=== PATIENT | female | born 1960 | race Caucasian/White ===

== ENCOUNTER 2019-03-10 11:44 | Inpatient (IN) ==
[2019-03-10] MEDS ORDERED: Morphine Sulfate 2 MG/ML SYRINGE IVP ONE ×2 (12:14→14:26)
[2019-03-10] MEDS ORDERED: Ondansetron 4 MG/2 ML VIAL IVP ONE (12:14)
[2019-03-10] MEDS: 0.9 % Sodium Chloride 1,000 ML IVC SCH (12:39)
[2019-03-10] MEDS ORDERED: Isovue-370 500 ML BOTTLE IVP ONE (12:59)
[2019-03-10 13:03] LABS: Basophils # 0.1 K/mcL (0.0-0.2); Basophils % 0.4 %; Eosinophils # 0.2 K/mcL (0.0-0.6); Eosinophils % 1.3 %; Hematocrit 42.7 % (35.3-44.9); Hemoglobin 13.7 g/dL (11.5-15.4); Immature Granulocytes % 0.5 % (0-4); Lymphocytes # 2.5 K/mcL (0.6-4.6); Lymphocytes % 15.5 %; Mean Corpuscular HGB Conc 32.1 g/dL (31.6-35.5); Mean Corpuscular Hemoglobin 29.7 pg (28.0-33.3); Mean Corpuscular Volume 92.6 fL (83.0-100.0); Mean Platelet Volume 10.1 fL (9.4-12.4); Monocytes # 0.8 K/mcL (0.0-1.3); Monocytes % 4.9 %; Neutrophils # 12.6 K/mcL (1.6-8.9); Platelet Count 247 K/mcL (140-400); Red Blood Count 4.61 M/mcL (3.82-4.97); Red Cell Distribution Width 15.5 % (11.5-14.5); Segmented Neutrophils % 77.4 %
[2019-03-10 13:09] LABS: White Blood Count 16.3 K/mcL (4.3-11.1)
[2019-03-10 13:21] LABS: Bilirubin,Urine Negative (Negative); Blood,Urine Negative (Negative); Clarity,Urine Clear (Clear); Color,Urine Yellow (Yellow); Glucose,Urine (UA) 250 mg/dL (Normal); Ketones,Urine Negative (Negative); Leukocyte Esterase,Urine Negative (Negative); Nitrite,Urine Negative (Negative); Protein,Urine Negative (Neg-Trace); Specific Gravity,Urine 1.013 (1.010-1.025); Urobilinogen,Urine Normal (Normal)
[2019-03-10 14:36] LABS: Alanine Aminotransferase 14 Units/L (7-52); Albumin 3.8 g/dL (3.5-5.7); Albumin/Globulin Ratio 1.3 (1.1-2.2); Alkaline Phosphatase 56 Units/L (34-104); Aspartate Amino Transferase 15 Units/L (13-39); BUN/Creatinine Ratio 16 (6-26); Bilirubin,Indirect 0.3 mg/dL (0.0-1.0); Bilirubin,Total 0.3 mg/dL (0.3-1.0); Blood Urea Nitrogen 10 mg/dL (6-20); Calcium 9.3 mg/dL (8.6-10.3); Carbon Dioxide 29 mEq/L (23-29); Chloride 105 mEq/L (98-107); Glucose 108 mg/dL (70-105); Lipase 46 Units/L (11-82); Osmolality,Calculated 292 (280-300); Potassium 3.8 mEq/L (3.5-5.1); Sodium 141 mEq/L (136-145); Total Protein 6.8 g/dL (6.4-8.9); eGFR For African Americans > 60 (> 60); eGFR For Non-African Americans > 60 (> 60)
[2019-03-10] MEDS ORDERED: *HR* Promethazine 25 MG/ML VIAL IVP PRN (16:16)
[2019-03-10] MEDS ORDERED: Naloxone 0.4 MG/ML INJ IVP PRN (16:16)
[2019-03-10] MEDS ORDERED: Ketorolac 15 MG/ML VIAL IVP SCH (18:00)
[2019-03-10] MEDS: Ketorolac 15 MG/ML VIAL IVP SCH (18:13)
[2019-03-10] MEDS: *HR* Heparin 5,000 UNIT/ML VIAL SQ SCH (18:13)
[2019-03-10] MEDS: Piperacillin/Tazobactam 3.375 GM in 0.9 % Sodium Chloride Mini Bag 100 ML IVPB SCH (20:30)
[2019-03-10] MEDS: Nicotine 21 MG PATCH.TD24 TD SCH (20:30)
[2019-03-10] MEDS: Ipratropium/Albuterol Neb 3 ML IH SCH (22:26)
[2019-03-11] MEDS: Ketorolac 15 MG/ML VIAL IVP SCH ×5 (00:02→23:56)
[2019-03-11] MEDS: *HR* LORazepam 2 MG/ML VIAL IVP PRN ×3 (00:04→21:30)
[2019-03-11] MEDS: 0.9 % Sodium Chloride 1,000 ML IVC SCH (00:37)
[2019-03-11] MEDS: Piperacillin/Tazobactam 3.375 GM in 0.9 % Sodium Chloride Mini Bag 100 ML IVPB SCH ×3 (03:47→21:28)
[2019-03-11] MEDS: Ipratropium/Albuterol Neb 3 ML IH SCH ×4 (04:08→22:19)
[2019-03-11] MEDS: *HR* Heparin 5,000 UNIT/ML VIAL SQ SCH ×2 (05:07→17:46)
[2019-03-11 07:03] LABS: Basophils # 0.1 K/mcL (0.0-0.2); Basophils % 0.7 %; Eosinophils # 0.2 K/mcL (0.0-0.6); Eosinophils % 2.3 %; Hematocrit 37.6 % (35.3-44.9); Immature Granulocytes % 0.5 % (0-4); Lymphocytes # 2.5 K/mcL (0.6-4.6); Lymphocytes % 32.4 %; Mean Corpuscular HGB Conc 31.6 g/dL (31.6-35.5); Mean Corpuscular Hemoglobin 29.2 pg (28.0-33.3); Mean Corpuscular Volume 92.4 fL (83.0-100.0); Mean Platelet Volume 9.9 fL (9.4-12.4); Monocytes # 0.5 K/mcL (0.0-1.3); Monocytes % 6.2 %; Neutrophils # 4.5 K/mcL (1.6-8.9); Platelet Count 207 K/mcL (140-400); Red Blood Count 4.07 M/mcL (3.82-4.97); Red Cell Distribution Width 15.7 % (11.5-14.5); Segmented Neutrophils % 57.9 %
[2019-03-11 07:22] LABS: BUN/Creatinine Ratio 18 (6-26); Blood Urea Nitrogen 12 mg/dL (6-20); Calcium 8.1 mg/dL (8.6-10.3); Carbon Dioxide 28 mEq/L (23-29); Chloride 108 mEq/L (98-107); Glucose 125 mg/dL (70-105); Osmolality,Calculated 295 (280-300); Potassium 3.8 mEq/L (3.5-5.1); Sodium 142 mEq/L (136-145); eGFR For African Americans > 60 (> 60); eGFR For Non-African Americans > 60 (> 60)
[2019-03-11 07:24] LABS: White Blood Count 7.7 K/mcL (4.3-11.1)
[2019-03-11 07:25] LABS: Hemoglobin 11.9 g/dL (11.5-15.4)
[2019-03-11] MEDS: Nicotine 21 MG PATCH.TD24 TD SCH (08:19)
[2019-03-11] MEDS: Tiotropium 18 MCG inhalation IH SCH (10:53)
[2019-03-11] MEDS ORDERED: Fluticasone Propionate Nasal 50 MCG/SPRAY BOTTLE NS PRN (13:55)
[2019-03-11] MEDS ORDERED: Benzonatate 100 MG CAPSULE PO PRN (13:55)
[2019-03-11] MEDS ORDERED: Ipratropium/Albuterol Neb 3 ML IH PRN (13:55)
[2019-03-11] MEDS: Fenofibrate 54 MG TABLET PO SCH (21:28)
[2019-03-11] MEDS: traZODone 50 MG TABLET PO SCH (21:28)
[2019-03-12] MEDS: Piperacillin/Tazobactam 3.375 GM in 0.9 % Sodium Chloride Mini Bag 100 ML IVPB SCH ×3 (03:39→21:33)
[2019-03-12 04:33] LABS: Hematocrit 37.9 % (35.3-44.9); Hemoglobin 11.9 g/dL (11.5-15.4); Mean Corpuscular HGB Conc 31.4 g/dL (31.6-35.5); Mean Corpuscular Hemoglobin 29.5 pg (28.0-33.3); Mean Platelet Volume 9.9 fL (9.4-12.4); Platelet Count 201 K/mcL (140-400); Red Blood Count 4.03 M/mcL (3.82-4.97); Red Cell Distribution Width 15.2 % (11.5-14.5); White Blood Count 7.8 K/mcL (4.3-11.1)
[2019-03-12] MEDS: Ipratropium/Albuterol Neb 3 ML IH SCH ×4 (04:35→22:25)
[2019-03-12 04:51] LABS: BUN/Creatinine Ratio 8 (6-26); Blood Urea Nitrogen 5 mg/dL (6-20); Calcium 8.8 mg/dL (8.6-10.3); Carbon Dioxide 31 mEq/L (23-29); Chloride 105 mEq/L (98-107); Glucose 137 mg/dL (70-105); Osmolality,Calculated 295 (280-300); Potassium 3.6 mEq/L (3.5-5.1); Sodium 143 mEq/L (136-145); eGFR For African Americans > 60 (> 60); eGFR For Non-African Americans > 60 (> 60)
[2019-03-12] MEDS: Ketorolac 15 MG/ML VIAL IVP SCH ×3 (06:01→17:22)
[2019-03-12] MEDS: *HR* LORazepam 2 MG/ML VIAL IVP PRN (06:01)
[2019-03-12] MEDS: *HR* Heparin 5,000 UNIT/ML VIAL SQ SCH ×2 (06:01→17:22)
[2019-03-12] MEDS: amLODIPine 5 MG TABLET PO SCH (09:46)
[2019-03-12] MEDS: Nicotine 21 MG PATCH.TD24 TD SCH (09:46)
[2019-03-12] MEDS: Tiotropium 18 MCG inhalation IH SCH (10:54)
[2019-03-12] MEDS: ALPRAZolam 0.5 MG TABLET PO PRN (13:21)
[2019-03-12] MEDS: Fenofibrate 54 MG TABLET PO SCH (21:32)
[2019-03-12] MEDS: traZODone 50 MG TABLET PO SCH (21:33)
[2019-03-13] MEDS: Ketorolac 15 MG/ML VIAL IVP SCH ×2 (00:30→06:08)
[2019-03-13] MEDS: Ipratropium/Albuterol Neb 3 ML IH SCH ×4 (03:39→21:40)
[2019-03-13] MEDS: Piperacillin/Tazobactam 3.375 GM in 0.9 % Sodium Chloride Mini Bag 100 ML IVPB SCH ×3 (04:21→20:12)
[2019-03-13 05:37] LABS: Hematocrit 37.1 % (35.3-44.9); Hemoglobin 12.2 g/dL (11.5-15.4); Mean Corpuscular HGB Conc 32.9 g/dL (31.6-35.5); Mean Corpuscular Hemoglobin 29.6 pg (28.0-33.3); Mean Platelet Volume 9.9 fL (9.4-12.4); Platelet Count 226 K/mcL (140-400); Red Blood Count 4.12 M/mcL (3.82-4.97); White Blood Count 6.7 K/mcL (4.3-11.1)
[2019-03-13 05:54] LABS: BUN/Creatinine Ratio 11 (6-26); Blood Urea Nitrogen 7 mg/dL (6-20); Calcium 8.9 mg/dL (8.6-10.3); Carbon Dioxide 30 mEq/L (23-29); Chloride 106 mEq/L (98-107); Glucose 113 mg/dL (70-105); Osmolality,Calculated 295 (280-300); Potassium 3.8 mEq/L (3.5-5.1); Sodium 143 mEq/L (136-145); eGFR For African Americans > 60 (> 60); eGFR For Non-African Americans > 60 (> 60)
[2019-03-13] MEDS: *HR* Heparin 5,000 UNIT/ML VIAL SQ SCH ×2 (06:08→17:12)
[2019-03-13] MEDS: ALPRAZolam 0.5 MG TABLET PO PRN ×2 (09:28→12:55)
[2019-03-13] MEDS: amLODIPine 5 MG TABLET PO SCH (09:29)
[2019-03-13] MEDS: Nicotine 21 MG PATCH.TD24 TD SCH (09:30)
[2019-03-13] MEDS: Tiotropium 18 MCG inhalation IH SCH (11:10)
[2019-03-13] MEDS: Fenofibrate 54 MG TABLET PO SCH (20:12)
[2019-03-13] MEDS: traZODone 50 MG TABLET PO SCH ×2 (20:12→23:00)
[2019-03-14] MEDS: Ipratropium/Albuterol Neb 3 ML IH SCH ×2 (03:39→10:20)
[2019-03-14] MEDS: Piperacillin/Tazobactam 3.375 GM in 0.9 % Sodium Chloride Mini Bag 100 ML IVPB SCH ×2 (05:13→13:06)
[2019-03-14] MEDS: *HR* Heparin 5,000 UNIT/ML VIAL SQ SCH (05:14)
[2019-03-14] MEDS: Nicotine 21 MG PATCH.TD24 TD SCH (09:29)
[2019-03-14] MEDS: amLODIPine 5 MG TABLET PO SCH (09:30)
[2019-03-14] MEDS: ALPRAZolam 0.5 MG TABLET PO PRN (09:33)
[2019-03-14] MEDS: Tiotropium 18 MCG inhalation IH SCH (10:22)
[2019-03-14 14:02] VITALS: BP 112/70
== END 2019-03-14 15:05 | disposition home or self-care (01) | DRG 392 ==
LOC: EMEROOARM 11:44 → 3ANU 11:44 → SUATTDRO 15:45 → 3ANU 16:22
PROVIDERS: ADMIT Internal Medicine; ATTEND Internal Medicine

== ENCOUNTER 2019-04-09 11:49 | Inpatient (IN) ==
[2019-04-09] MEDS ORDERED: Albuterol 2.5 MG/3 ML NEBULIZER IH PRN (12:09)
[2019-04-09] MEDS ORDERED: cefOXitin 2,000 MG in Water for inj. (sterile) 20 ML IVP ONE (12:09)
[2019-04-09] MEDS ORDERED: Ringers Solution, Lactated 1,000 ML IVC SCH (12:15)
[2019-04-09] MEDS ORDERED: ALPRAZolam 0.5 MG TABLET PO ONE (12:44)
[2019-04-09] MEDS ORDERED: Pregabalin 75 MG CAPSULE PO ONE (13:06)
[2019-04-09] MEDS ORDERED: traMADol 50 MG TABLET PO ONE (13:06)
[2019-04-09] MEDS ORDERED: Famotidine 20 MG/2 ML VIAL IVP ONE (13:06)
[2019-04-09] MEDS ORDERED: Acetaminophen IV 1,000 MG/100 ML INFUS..BTL IVPB ONE (13:07)
[2019-04-09] MEDS ORDERED: *HR* Labetalol 20 MG/4 ML SYRINGE IVP PRN (13:08)
[2019-04-09] MEDS ORDERED: *HR* HYDROmorphone (PF) 1 MG/ML SYRINGE IVP PRN (13:08)
[2019-04-09] MEDS ORDERED: *HR* HYDROmorphone 2 MG TABLET PO PRN (13:08)
[2019-04-09] MEDS ORDERED: *HR* Promethazine 25 MG/ML VIAL IVP PRN (13:08)
[2019-04-09] MEDS ORDERED: *HR* OxyCODONE Immed Rel 5 MG TABLET PO PRN (13:08)
[2019-04-09] MEDS ORDERED: Dexamethasone 4 MG/ML VIAL ONE (13:48)
[2019-04-09] MEDS ORDERED: *HR* Rocuronium Bromide 50 MG/5 ML VIAL ONE ×2 (13:48→16:41)
[2019-04-09] MEDS ORDERED: *HR* FentaNYL (PF) 100 MCG/2 ML VIAL ONE (13:48)
[2019-04-09] MEDS ORDERED: Lidocaine -MPF 2% 2 ML VIAL ONE (13:48)
[2019-04-09] MEDS ORDERED: Neostigmine Methylsulfate 3 MG/3 ML SYRINGE ONE ×2 (13:48→17:03)
[2019-04-09] MEDS ORDERED: *HR* Propofol 200 MG/20 ML VIAL IVP ONE (13:48)
[2019-04-09] MEDS ORDERED: *HR* Midazolam HCl 2 MG/2 ML VIAL ONE (13:48)
[2019-04-09] MEDS ORDERED: Ondansetron 4 MG/2 ML VIAL ONE (13:48)
[2019-04-09] MEDS ORDERED: EPHEDrine 50 MG/ML VIAL ONE (15:29)
[2019-04-09] MEDS ORDERED: *HR* Atropine Sulfate 8 MG/20 ML VIAL IVP ONE (15:34)
[2019-04-09] MEDS ORDERED: Naloxone 0.4 MG/ML INJ IVP PRN (17:11)
[2019-04-09] MEDS ORDERED: 0.9 % Sodium Chloride 1,000 ML IVC SCH (17:15)
[2019-04-09] MEDS: Ketorolac 15 MG/ML VIAL IM SCH ×2 (18:36→23:29)
[2019-04-09 19:21] LABS: Basophils # 0.1 K/mcL (0.0-0.2); Basophils % 0.4 %; Eosinophils # 0.1 K/mcL (0.0-0.6); Eosinophils % 0.7 %; Hematocrit 40.6 % (35.3-44.9); Hemoglobin 12.9 g/dL (11.5-15.4); Immature Granulocytes % 0.4 % (0-4); Lymphocytes # 1.6 K/mcL (0.6-4.6); Lymphocytes % 9.9 %; Mean Corpuscular HGB Conc 31.8 g/dL (31.6-35.5); Mean Corpuscular Hemoglobin 29.7 pg (28.0-33.3); Mean Corpuscular Volume 93.5 fL (83.0-100.0); Mean Platelet Volume 10.1 fL (9.4-12.4); Monocytes # 0.5 K/mcL (0.0-1.3); Monocytes % 2.9 %; Neutrophils # 13.7 K/mcL (1.6-8.9); Platelet Count 219 K/mcL (140-400); Red Blood Count 4.34 M/mcL (3.82-4.97); Red Cell Distribution Width 15.4 % (11.5-14.5); Segmented Neutrophils % 85.7 %
[2019-04-10] MEDS: Ketorolac 15 MG/ML VIAL IM SCH (05:05)
[2019-04-10 07:20] LABS: BUN/Creatinine Ratio 17 (6-26); Blood Urea Nitrogen 9 mg/dL (6-20); Calcium 8.9 mg/dL (8.6-10.3); Carbon Dioxide 25 mEq/L (23-29); Chloride 103 mEq/L (98-107); Glucose 154 mg/dL (70-105); Osmolality,Calculated 286 (280-300); Sodium 137 mEq/L (136-145); eGFR For African Americans > 60 (> 60); eGFR For Non-African Americans > 60 (> 60)
[2019-04-10] MEDS: Ketorolac 15 MG/ML VIAL IVP SCH ×2 (11:20→17:18)
[2019-04-10] MEDS: Acetaminophen IV 1,000 MG/100 ML INFUS..BTL IVPB SCH ×2 (11:31→17:19)
[2019-04-10] MEDS ORDERED: Ipratropium/Albuterol Neb 3 ML IH PRN (12:41)
[2019-04-10] MEDS ORDERED: Benzonatate 100 MG CAPSULE PO PRN (12:41)
[2019-04-10] MEDS ORDERED: 0.9 % Sodium Chloride 1,000 ML IVC SCH (12:43)
[2019-04-10] MEDS: ALPRAZolam 0.5 MG TABLET PO PRN ×2 (14:59→21:35)
[2019-04-10] MEDS: Pantoprazole 40 MG VIAL IVP SCH (15:00)
[2019-04-10] MEDS ORDERED: traZODone 50 MG TABLET PO SCH (21:00)
[2019-04-11] MEDS: Acetaminophen IV 1,000 MG/100 ML INFUS..BTL IVPB SCH ×2 (00:39→06:01)
[2019-04-11] MEDS: Ketorolac 15 MG/ML VIAL IVP SCH ×2 (00:40→06:02)
[2019-04-11 06:57] VITALS: BP 126/72
[2019-04-11] MEDS: Pantoprazole 40 MG VIAL IVP SCH (07:38)
[2019-04-11] MEDS ORDERED: *HR* OxyCODONE/APAP 5/325 TABLET PO PRN (08:48)
[2019-04-11] MEDS ORDERED: Ibuprofen 800 MG TABLET PO ONE (08:48)
[2019-04-11] MEDS ORDERED: Nicotine 21 MG PATCH.TD24 TD SCH (09:00)
[2019-04-11] MEDS ORDERED: amLODIPine 5 MG TABLET PO SCH (09:00)
[2019-04-11] MEDS ORDERED: Budesonide/Formoterol 80/4.5 1 PUFF INH IH SCH (10:00)
== END 2019-04-11 10:38 | disposition home or self-care (01) | DRG 331 ==
LOC: SAMDAY 11:49 → 3ANU 18:03
PROVIDERS: ADMIT Surgery; ATTEND Surgery